=== PATIENT | male | born 1955 | race Caucasian/White ===

== ENCOUNTER 2017-11-10 20:01 | Emergency (ER) | payer MEDICARE ==
[~2017-11-10] VITALS: Ht 185.4 cm; Wt 80.7 kg
[~2017-11-10 20:01] MED LIST: ALBU3IS INH; ALBU90I INH; ALBU90OI INH; ALBU90OI6 INH; BENZ100A PO; BENZ2 PO; BUTASPCAFT; CLON.5; CYCL10; GABA300; GABA800 PO; HYOS.375ER; INDO75CR; LEVO750 PO; Mucinex600 MG PO; Mucus Relief400 MG PO; OXYC40ER; OXYC5 PO; PRED10 PO; PRED20 PO; PROM25; Prednisone10 MG PO; Prednisone20 MG PO; Pulmicort0.5 MG/2 M IH; SERT100; TIOT18 IH; TIOT18 INH; Ventolin Soln3 ML INH; Zithromax250 MG PO
== END 2017-11-10 21:00 | disposition left against medical advice (07) ==
LOC: ER 20:01
DX: Z53.21 Procedure and treatment not carried out due to patient leaving prior to being seen by health care provider (principal)

== ENCOUNTER 2017-11-19 05:40 | Emergency (ER) | payer MEDICARE ==
[~2017-11-19] VITALS: Ht 177.8 cm; Wt 87.9 kg
[2017-11-19] MEDS ORDERED: PRED10 PO (06:04)
[2017-11-19 06:28] LABS: BASOPHILS ABSOLUTE AUTO 0.08 K/mm3 (0.00-0.23); BASOPHILS PERCENT AUTO 1 % (0-2); EOSINOPHILS ABSOLUTE AUTO 0.34 K/mm3 (0.00-0.68); EOSINOPHILS PERCENT AUTO 5 % (0-6); Hematocrit 48.6 % (37.0-53.0); Hemoglobin 15.7 g/dL (13.5-17.5); IMMATURE GRAN ABSOLUTE AUTO 0.05 K/mm3 (0.00-0.10); IMMATURE GRAN PERCENT AUTO 1 % (0-1); LYMPHOCYTES ABSOLUTE AUTO 1.31 K/mm3 (0.84-5.20); LYMPHOCYTES PERCENT AUTO 18 % (21-46); MONOCYTES ABSOLUTE AUTO 0.78 K/mm3 (0.16-1.47); MONOCYTES PERCENT AUTO 11 % (4-13); Mean Corpuscular HGB 31.1 pg (26.0-34.0); Mean Corpuscular HGB Conc 32.3 g/dL (31.5-36.5); Mean Corpuscular Volume 96 fL (80-100); NEUTROPHILS ABSOLUTE AUTO 4.55 K/mm3 (1.96-9.15); NEUTROPHILS PERCENT AUTO 64 % (41-73); Platelet Count 251 K/mm3 (150-400); RDW Coefficient Variation 13.3 % (11.7-14.2); RDW Standard Deviation 47.7 fL (35.1-46.3); Red Blood Cell Count 5.05 M/mm3 (4.30-5.90); White Blood Cell Count 7.11 K/mm3 (4.00-11.30)
[2017-11-19 06:52] LABS: Alanine Aminotransfer (ALT/SGP 21 U/L (12-78); Albumin, Blood 3.8 g/dL (3.4-5.0); Albumin/Globulin Ratio 1.1 (0.8-1.8); Alk Phos 78 U/L (50-136); Anion Gap 6 mmol/L (6-16); Aspartate Aminotrans (AST/SGOT 22 U/L (12-37); Bilirubin, Total 0.6 mg/dL (0.1-1.0); Blood Urea Nitrogen 22 mg/dL (8-24); Bun/Creatinine Ratio 21.2 (12.0-20.0); CO2, Blood 28 mmol/L (21-32); Calcium, Blood 9.1 mg/dL (8.5-10.1); Chloride, Blood 107 mmol/L (98-108); Creatinine, Blood 1.04 mg/dL (0.60-1.20); Globulin, Blood 3.6 g/dL (2.2-4.0); Glomerular Filtration Rate >60 (60-); Glucose, Blood 91 mg/dL (70-99); Potassium, Blood 4.3 mmol/L (3.5-5.5); Sodium, Blood 141 mmol/L (136-145); Total Protein, Blood 7.4 g/dL (6.4-8.2); Troponin I <0.015 ng/mL (0.000-0.040)
[2017-11-19] MEDS ORDERED: Prednisone20 MG PO (08:35)
== END 2017-11-19 08:59 | disposition home or self-care (01) ==
LOC: ER 05:40
PROVIDERS: Emergency Medicine
DX: J44.1 Chronic obstructive pulmonary disease with (acute) exacerbation (principal); F17.200 Nicotine dependence, unspecified, uncomplicated
CPT/HCPCS: 36415; 71046; 80053; 84484; 85025; 93005; 93010; 94644; 96374; 99284; J2930

== ENCOUNTER 2018-01-15 01:46 | Emergency (ER) | payer MEDICARE ==
[~2018-01-15] VITALS: Ht 185.4 cm; Wt 81.7 kg
[2018-01-15 02:03] LABS: BASOPHILS ABSOLUTE AUTO 0.09 K/mm3 (0.00-0.23); BASOPHILS PERCENT AUTO 1 % (0-2); EOSINOPHILS ABSOLUTE AUTO 0.37 K/mm3 (0.00-0.68); EOSINOPHILS PERCENT AUTO 4 % (0-6); Hematocrit 49.6 % (37.0-53.0); Hemoglobin 15.9 g/dL (13.5-17.5); IMMATURE GRAN ABSOLUTE AUTO 0.06 K/mm3 (0.00-0.10); IMMATURE GRAN PERCENT AUTO 1 % (0-1); LYMPHOCYTES ABSOLUTE AUTO 1.85 K/mm3 (0.84-5.20); LYMPHOCYTES PERCENT AUTO 19 % (21-46); MONOCYTES ABSOLUTE AUTO 0.99 K/mm3 (0.16-1.47); MONOCYTES PERCENT AUTO 10 % (4-13); Mean Corpuscular HGB 31.4 pg (26.0-34.0); Mean Corpuscular HGB Conc 32.1 g/dL (31.5-36.5); Mean Corpuscular Volume 98 fL (80-100); NEUTROPHILS ABSOLUTE AUTO 6.21 K/mm3 (1.96-9.15); NEUTROPHILS PERCENT AUTO 65 % (41-73); Platelet Count 286 K/mm3 (150-400); RDW Coefficient Variation 13.4 % (11.7-14.2); RDW Standard Deviation 48.9 fL (35.1-46.3); Red Blood Cell Count 5.06 M/mm3 (4.30-5.90); White Blood Cell Count 9.57 K/mm3 (4.00-11.30)
[2018-01-15 02:04] LABS: PCO2 Arterial 64.5 mmHg (35-45); PO2 Arterial 81.6 mmHg (80-100); pH Blood Arterial 7.27 (7.35-7.45)
[2018-01-15 02:24] LABS: Alanine Aminotransfer (ALT/SGP 27 U/L (12-78); Albumin, Blood 3.8 g/dL (3.4-5.0); Albumin/Globulin Ratio 1.1 (0.8-1.8); Alk Phos 83 U/L (50-136); Anion Gap 7 mmol/L (6-16); Aspartate Aminotrans (AST/SGOT 30 U/L (12-37); Bilirubin, Total 0.4 mg/dL (0.1-1.0); Blood Urea Nitrogen 20 mg/dL (8-24); Bun/Creatinine Ratio 17.2 (12.0-20.0); CO2, Blood 31 mmol/L (21-32); Calcium, Blood 8.8 mg/dL (8.5-10.1); Chloride, Blood 106 mmol/L (98-108); Creatinine, Blood 1.16 mg/dL (0.60-1.20); Globulin, Blood 3.5 g/dL (2.2-4.0); Glomerular Filtration Rate >60 (60-); Glucose, Blood 100 mg/dL (70-99); Potassium, Blood 4.4 mmol/L (3.5-5.5); Sodium, Blood 144 mmol/L (136-145); Total Protein, Blood 7.3 g/dL (6.4-8.2); Troponin I <0.015 ng/mL (0.000-0.040)
[2018-01-15] MEDS ORDERED: Prednisone50 MG PO (03:11)
[2018-01-15] MEDS ORDERED: LEVO750 PO (03:11)
== END 2018-01-15 03:15 | disposition left against medical advice (07) ==
LOC: ER 01:46
PROVIDERS: Emergency Medicine
DX: J44.1 Chronic obstructive pulmonary disease with (acute) exacerbation (principal); J96.90 Respiratory failure, unspecified, unspecified whether with hypoxia or hypercapnia; F17.210 Nicotine dependence, cigarettes, uncomplicated; Z88.8 Allergy status to other drugs, medicaments and biological substances; Z88.5 Allergy status to narcotic agent; Z88.1 Allergy status to other antibiotic agents; Z79.52 Long term (current) use of systemic steroids; Z79.51 Long term (current) use of inhaled steroids
CPT/HCPCS: 36600; 71045; 80053; 82803; 83880; 84484; 85025; 94644; 94660; 96365; 96375; 99284; J1100; J1956

== ENCOUNTER 2018-06-09 10:34 | Emergency (ER) | payer MEDICARE ==
[~2018-06-09] VITALS: Ht 188 cm; Wt 76.2 kg
[~2018-06-09 10:34] MED LIST changes: +Prednisone50 MG PO
== END 2018-06-09 10:52 | disposition left against medical advice (07) ==
LOC: ER 10:34
DX: Z53.21 Procedure and treatment not carried out due to patient leaving prior to being seen by health care provider (principal)

== ENCOUNTER 2018-11-02 20:39 | Inpatient (IN) | payer MEDICARE ==
[~2018-11-02] VITALS: Ht 177.8 cm; Wt 64.4 kg
[2018-11-02 21:13] LABS: BASOPHILS ABSOLUTE AUTO 0.06 K/mm3 (0.00-0.23); BASOPHILS PERCENT AUTO 1 % (0-2); EOSINOPHILS ABSOLUTE AUTO 0.12 K/mm3 (0.00-0.68); EOSINOPHILS PERCENT AUTO 1 % (0-6); Hematocrit 49.2 % (37.0-53.0); IMMATURE GRAN PERCENT AUTO 5 % (0-1); LYMPHOCYTES ABSOLUTE AUTO 0.96 K/mm3 (0.84-5.20); LYMPHOCYTES PERCENT AUTO 11 % (21-46); MONOCYTES ABSOLUTE AUTO 0.92 K/mm3 (0.16-1.47); MONOCYTES PERCENT AUTO 10 % (4-13); Mean Corpuscular HGB 31.6 pg (26.0-34.0); Mean Corpuscular HGB Conc 30.5 g/dL (31.5-36.5); Mean Corpuscular Volume 104 fL (80-100); Mean Platelet Volume 10.4 fL (9.1-12.4); NEUTROPHILS ABSOLUTE AUTO 6.41 K/mm3 (1.96-9.15); NEUTROPHILS PERCENT AUTO 72 % (41-73); Platelet Count 196 K/mm3 (150-400); RDW Coefficient Variation 13.7 % (11.7-14.2); RDW Standard Deviation 53.5 fL (35.1-46.3); Red Blood Cell Count 4.74 M/mm3 (4.30-5.90); White Blood Cell Count 8.87 K/mm3 (4.00-11.30)
[2018-11-02 21:23] LABS: Albumin, Blood 3.3 g/dL (3.4-5.0); Bilirubin, Total 0.7 mg/dL (0.1-1.0); Calcium, Blood 7.8 mg/dL (8.5-10.1); Creatinine, Blood 1.6 mg/dL (0.60-1.20); Globulin, Blood 3.2 g/dL (2.2-4.0); Potassium, Blood 5.4 mmol/L (3.5-5.5); Total Protein, Blood 6.5 g/dL (6.4-8.2); Troponin I 0.33 ng/mL (0.000-0.040)
[2018-11-02 22:45] LABS: Calcium, Ionized (POC) 1.05 mmol/L (1.10-1.46); Chloride (POC) 103 mmol/L (98-108); Creatinine (POC) 1.8 mg/dL (0.8-1.3); Glucose (ISTAT POC) 205 mg/dL (70-99); Potassium (POC) 5.3 mmol/L (3.5-5.5); Sodium (POC) 135 mmol/L (135-148); Total CO2 (POC) 21 mmol/L (21-32)
[2018-11-02 22:57] LABS: PCO2 Arterial 95.5 mmHg (35-45); PO2 Arterial 488 mmHg (80-100); pH Blood Arterial 6.89 (7.35-7.45)
[2018-11-02 23:08] LABS: BASOPHILS ABSOLUTE AUTO 0.11 K/mm3 (0.00-0.23); BASOPHILS PERCENT AUTO 1 % (0-2); EOSINOPHILS ABSOLUTE AUTO 0.09 K/mm3 (0.00-0.68); EOSINOPHILS PERCENT AUTO 1 % (0-6); Hematocrit 45.1 % (37.0-53.0); Hemoglobin 13.7 g/dL (13.5-17.5); IMMATURE GRAN ABSOLUTE AUTO 0.66 K/mm3 (0.00-0.10); IMMATURE GRAN PERCENT AUTO 5 % (0-1); LYMPHOCYTES ABSOLUTE AUTO 1.39 K/mm3 (0.84-5.20); LYMPHOCYTES PERCENT AUTO 10 % (21-46); MONOCYTES ABSOLUTE AUTO 0.41 K/mm3 (0.16-1.47); MONOCYTES PERCENT AUTO 3 % (4-13); Mean Corpuscular HGB 31.9 pg (26.0-34.0); Mean Corpuscular HGB Conc 30.4 g/dL (31.5-36.5); Mean Corpuscular Volume 105 fL (80-100); Mean Platelet Volume 10.6 fL (9.1-12.4); NEUTROPHILS ABSOLUTE AUTO 10.96 K/mm3 (1.96-9.15); NEUTROPHILS PERCENT AUTO 81 % (41-73); NRBC ABSOLUTE 0.02 K/mm3 (0.00-0.02); NRBC Auto 0.1 /100 WBC (0.0-0.2); Platelet Count 189 K/mm3 (150-400); RDW Coefficient Variation 13.9 % (11.7-14.2); RDW Standard Deviation 54.2 fL (35.1-46.3); Red Blood Cell Count 4.29 M/mm3 (4.30-5.90); White Blood Cell Count 13.62 K/mm3 (4.00-11.30)
[2018-11-02 23:26] LABS: Albumin, Blood 2.7 g/dL (3.4-5.0); Bilirubin, Total 0.8 mg/dL (0.1-1.0); Calcium, Blood 7.6 mg/dL (8.5-10.1); Creatinine, Blood 1.5 mg/dL (0.60-1.20); Globulin, Blood 2.7 g/dL (2.2-4.0); Potassium, Blood 5.2 mmol/L (3.5-5.5); Total Protein, Blood 5.4 g/dL (6.4-8.2)
[2018-11-02 23:39] LABS: PCO2 Arterial 103 mmHg (35-45); pH Blood Arterial 6.94 (7.35-7.45)
--- NOTE | 2018-11-02 23:40 | NUR ---
Stat Echocardiogram performed in [facility].
--- NOTE | 2018-11-03 00:10 | NUR ---
ADMIT RECEIVED ADMIT FROM SENIOR SALES DIRECTOR S/P PCI WITH IABP. PT IS INTUBATED- AC 20, TV 500, PEEP 5, FIO2 60%. RESP RATE 20. IABP TO RIGHT FEMORAL- ECG TRIGGER WITH ASSIST FREQUENCY 1:1 (SEE BALLOON PUMP FLOWSHEET). MONITOR SHOWS NSR, RATE 90s. EPINEPHRINE GTT INFUSING @ 10MCG/MIN. LEVOPHED @ 3MCG/MIN. VASOPRESSIN INFUSING @ 0.04UNITS/MIN. AMIODARONE STARTED @ 0.04UNITS/MIN. TEMP 92.6F PER JONES TEMP PROBE. UNRESPONSIVE TO NOXIOUS STIMULI. NO GAG REFLEX NOTED. NO COUGH. PUPILS 7MM AND NON-REACTIVE. OCCASIONAL YAWN-LIKE REFLEX NOTED. OG CLAMPED AT THIS TIME. JONES PATENT AND DRAINING CLOUDY YELLOW URINE. POOR CAP REFILL NOTED. SKIN COOL AND DRY. 1+ PEDAL PULSES NOTED BILATERALLY. CENTRAL LINE NOTED TO LEFT FEMORAL. SEE ADMIT ASSESSMENT FOR FULL ASSESSMENT.
--- NOTE | 2018-11-03 00:26 | NUR ---
PT ARRIVED TO ICU FROM AUTOMOTIVE TIRE TECHNICIAN, PLACED ON 840 VENTILATOR. SETTINGS INCREASED TO 500 ML, EQUAL TO JUST UNDER 7 ML/KG OF IBW.
--- NOTE | 2018-11-03 00:37 | NUR ---
TRANSVENOUS PACER MONITOR SHOWS NSR, RATE 90s. TRANSVENOUS PACING IS NOTED DESPITE PACER RATE SET @ 70. DR. FELDMAN AT BEDSIDE. NEW ORDER RECEIVED TO TURN PACER OFF AT THIS TIME.
[2018-11-03 01:14] LABS: Base Excess Venous -13.6 mmol/L; Bicarbonate Venous 13.3 mmol/L (24.0-30.0); PO2 Venous 89.5 mmHg (38-42); pH Blood Venous 6.98 (7.34-7.37)
[2018-11-03 02:27] LABS: BASOPHILS ABSOLUTE AUTO 0.09 K/mm3 (0.00-0.23); BASOPHILS PERCENT AUTO 1 % (0-2); EOSINOPHILS ABSOLUTE AUTO 0.07 K/mm3 (0.00-0.68); EOSINOPHILS PERCENT AUTO 0 % (0-6); Hematocrit 45.1 % (37.0-53.0); Hemoglobin 13.7 g/dL (13.5-17.5); IMMATURE GRAN ABSOLUTE AUTO 0.52 K/mm3 (0.00-0.10); IMMATURE GRAN PERCENT AUTO 3 % (0-1); LYMPHOCYTES ABSOLUTE AUTO 0.83 K/mm3 (0.84-5.20); LYMPHOCYTES PERCENT AUTO 4 % (21-46); MONOCYTES ABSOLUTE AUTO 0.91 K/mm3 (0.16-1.47); MONOCYTES PERCENT AUTO 5 % (4-13); Mean Corpuscular HGB 31.4 pg (26.0-34.0); Mean Corpuscular HGB Conc 30.4 g/dL (31.5-36.5); Mean Corpuscular Volume 103 fL (80-100); Mean Platelet Volume 11.3 fL (9.1-12.4); NEUTROPHILS ABSOLUTE AUTO 17.45 K/mm3 (1.96-9.15); NEUTROPHILS PERCENT AUTO 88 % (41-73); Platelet Count 218 K/mm3 (150-400); RDW Coefficient Variation 13.8 % (11.7-14.2); RDW Standard Deviation 53.1 fL (35.1-46.3); Red Blood Cell Count 4.36 M/mm3 (4.30-5.90); White Blood Cell Count 19.87 K/mm3 (4.00-11.30)
[2018-11-03 02:31] LABS: Albumin, Blood 2.9 g/dL (3.4-5.0); Bilirubin, Total 0.8 mg/dL (0.1-1.0); Bun/Creatinine Ratio 13.1 (12.0-20.0); Calcium, Blood 7.7 mg/dL (8.5-10.1); Creatinine, Blood 1.98 mg/dL (0.60-1.20); Globulin, Blood 2.8 g/dL (2.2-4.0); Potassium, Blood 4.7 mmol/L (3.5-5.5); Total Protein, Blood 5.7 g/dL (6.4-8.2)
[2018-11-03 02:45] LABS: Phosphorus, Blood 9.8 mg/dL (2.5-4.9)
[2018-11-03 02:54] LABS: Magnesium, Blood 3.2 mg/dL (1.6-2.4)
[2018-11-03 02:54] LABS: pH Blood Venous 6.96 (7.34-7.37)
[2018-11-03 02:55] LABS: Base Excess Venous -14.1 mmol/L; Bicarbonate Venous 12.9 mmol/L (24.0-30.0); PCO2 Venous 80.1 mmHg (38-42); PO2 Venous 78.8 mmHg (38-42)
[2018-11-03 04:07] LABS: Source, Urine Catheter
[2018-11-03 04:13] LABS: Bilirubin, Urine Neg (Neg); Blood, Urine 5+ (Neg); Glucose Qualitative, Urine 3+ (Neg); Ketones, Urine Neg (Neg); Leukocyte Esterase, Urine Neg (Neg); Nitrite, Urine Neg (Neg); Protein, Urine 3+ (Neg); Urobilinogen, Urine NORM (Normal)
[2018-11-03 04:15] LABS: Appearance, Urine Hazy (Clear); Color, Urine Pale Yellow (P-Yellow)
[2018-11-03 04:19] LABS: Amorphous Mod ({null, 0-Heavy}); Bacteria Few /hpf; Mucus Light ({null, 0-Heavy}); Red Blood Cells, Urine 25-50 /hpf (0-2); Spermatozoa Mod /hpf; Squamous Epithelial Cells Rare /hpf (Few); White Blood Cells, Urine Rare /hpf (0-5)
[2018-11-03 04:23] LABS: U Amphetamine Screen Not Detected; U Barbituate Screen Not Detected; U Benzodiazapine Screen Not Detected; U Buprenorphine Screen Not Detected; U Cannabinoids Screen Not Detected; U Cocaine Screen Not Detected; U Methadone Screen Not Detected; U Methamphetamine Screen Not Detected; U Opiates Screen Not Detected; U Oxycodone Screen Not Detected; U Phencyclidine Screen Not Detected; U Propoxyphene Screen Not Detected
--- NOTE | 2018-11-03 06:50 | NUR ---
SHIFT SUMMARY NO ACUTE CHANGES. REMAINS INTUBATED- AC 22, TV 470, PEEP 5, FIO2 50%. RESP RATE MOSTLY 22 WITH INFREQUENT SPONTANEOUS BREATH. IABP CONTINUES IN 1:1 MODE WITH AUGMENTED PRESSURE >100 AND MAP >65. RIGHT FEMORAL SITE CLEAR. EPINEPHRINE CONTINUES @ 10MCG/MIN. LEVOPHED INFUSING @ 4MCG/MIN. AMIODARONE INFUSING @ 1MG/MIN. D5 WITH 150mEq SODIUM BICARB INFUSING @ 75CC/HR. NS INFUSING @ 75CC/HR. VASOPRESSIN REMAINS OFF. PT CONTINUES TO BE COMPLETELY UNRESPONSIVE. TEMP 93.4F. JONES PATENT AND DRAINING TO GRAVITY. OG TO LIS. NO SEDATION DURING NOC. CBG >400- DR. SAXENA NOTIFIED AND INSULIN GTT ORDERED- WAITING FOR IT TO BECOME AVAILABLE FROM PHARMACY. WILL REPORT TO DAY SHIFT RN.
[2018-11-03 08:07] LABS: Base Excess Venous -12.9 mmol/L; Bicarbonate Venous 13.9 mmol/L (24.0-30.0); PCO2 Venous 68.5 mmHg (38-42); PO2 Venous 65.5 mmHg (38-42)
[2018-11-03 08:09] LABS: pH Blood Venous 7.03 (7.34-7.37)
[2018-11-03 08:31] LABS: BASOPHILS ABSOLUTE AUTO 0.07 K/mm3 (0.00-0.23); BASOPHILS PERCENT AUTO 0 % (0-2); EOSINOPHILS PERCENT AUTO 0 % (0-6); Hematocrit 42.6 % (37.0-53.0); IMMATURE GRAN ABSOLUTE AUTO 0.18 K/mm3 (0.00-0.10); IMMATURE GRAN PERCENT AUTO 1 % (0-1); LYMPHOCYTES ABSOLUTE AUTO 0.34 K/mm3 (0.84-5.20); LYMPHOCYTES PERCENT AUTO 2 % (21-46); MONOCYTES ABSOLUTE AUTO 0.78 K/mm3 (0.16-1.47); MONOCYTES PERCENT AUTO 4 % (4-13); Mean Corpuscular HGB 31.9 pg (26.0-34.0); Mean Corpuscular HGB Conc 30.5 g/dL (31.5-36.5); Mean Corpuscular Volume 104 fL (80-100); Mean Platelet Volume 10.6 fL (9.1-12.4); NEUTROPHILS ABSOLUTE AUTO 20.38 K/mm3 (1.96-9.15); NEUTROPHILS PERCENT AUTO 94 % (41-73); Platelet Count 190 K/mm3 (150-400); RDW Coefficient Variation 13.4 % (11.7-14.2); Red Blood Cell Count 4.08 M/mm3 (4.30-5.90); White Blood Cell Count 21.75 K/mm3 (4.00-11.30)
[2018-11-03 08:54] LABS: Albumin, Blood 2.6 g/dL (3.4-5.0); Bun/Creatinine Ratio 12.6 (12.0-20.0); Calcium, Blood 6.8 mg/dL (8.5-10.1); Creatinine, Blood 2.39 mg/dL (0.60-1.20); Globulin, Blood 2.7 g/dL (2.2-4.0); Magnesium, Blood 2.7 mg/dL (1.6-2.4); Total Protein, Blood 5.3 g/dL (6.4-8.2)
[2018-11-03 08:58] LABS: Phosphorus, Blood 8.3 mg/dL (2.5-4.9)
--- NOTE | 2018-11-03 09:00 | NUR ---
STARTED FINAL DISCHARGE AT THIS TIME.
--- NOTE | 2018-11-03 09:27 | NUR ---
DR FELDMAN IN TO ASSESS PT. UPDATED HER ON PT'S STATUS.
[2018-11-03 09:28] LABS: Glucose, Blood 563 mg/dL (70-99)
--- NOTE | 2018-11-03 09:43 | NUR ---
ETHICS CONSULT STARTED: ALYSA IVERSON, DR FELDMAN, DOMINGA CHA CN, AND THIS RN PRESENT DURING ETHICS CONSULT. PT HAS NO KNOWN NEXT OF KIN/FAMILY. GOOD FRIEND IRWIN REPORTS THAT HE WOULD NOT WANT THESE EXTREME MEASURES, SHE KNOWS HE HAS A POLST/AD, BUT CANNOT FIND HIS MEDICAL BINDER IN HIS [place] HE LIVES [place]. MEDICAL RECORDS REPORT THAT HE IS A BUT THEY WERE UNABLE TO FIND ANY RECORDS AT THE [place] WHEN THIS RN CALLED TO ATTEMPT TO GET AD/POLST.
--- NOTE | 2018-11-03 09:56 | NUR ---
CALLED [facility] TO CHECK IF POLST ON RECORD. PT DOES NOT HAVE A POLST REGISTERED PER REGISTRY BANK.
[2018-11-03 10:09] LABS: Creatine Kinase MB 124.4 ng/mL (0.0-3.6)
[2018-11-03 10:20] LABS: Creatine Kinase MB Index 2.4 (0.0-4.0); Troponin I 11.4 ng/mL (0.000-0.040)
--- NOTE | 2018-11-03 10:21 | NUR ---
Ethics consult order processed. Patient case details reviewed and discussed with Career Development Manager (Dr Gómez), Intensive Care Unit Physician (Dr Sheikh), and Nursing Staff. 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 Per the principals physical exam it is also suspected that Mr Garza unfortunately but likely suffered a serious anoxic brain injury. Two provider attestation confirms that his clinical prognosis is extremly bleak with no meaningful recovery expected. Though Mr Garza has no advance care planning instrument on file outlining his medical preferences, an analysis of his HMP from prior admissions indicates that a non-agressive approach in the event of decline was his wish, and his friend Aramis verifies in concert with these findings that Alec was not in favor of heroic measures or preservation by artifical means. Given the composite picture, to honor the principals dignity, and avoid the non-beneficial use of clinical resources; in accordance with ORS 127.635, life sustaining procedures will be withdrawn under the supervision of the attending physician. Thank you for this consult, Hamlet Zamora DMin
[2018-11-03 10:31] LABS: Glucose, Blood 559 mg/dL (70-99)
[2018-11-03 11:46] LABS: Glucose, Blood 534 mg/dL (70-99)
--- NOTE | 2018-11-03 11:51 | NUR ---
ASSUMED CARE / UPDATE: REPORT RECEIVED FROM DARLENE Ureña, RN & ARGENTINA Reeves, RN. ASSUMED CARE OF THIS PT AT APPROX 0700. PT REMAINS UNCHANGED AT THIS TIME; HE IS UNRESPONSIVE TO ALL STIMULI, PUPILS ARE DILATED & NONREACTIVE, EYES ARE FIXED. IABP TO R GROIN & CL TO L GROIN DOCUMENTED. LEVOPHED & EPINEPHRINE CONTINUE CHARTED IN FLOWSHEET. AMIODARONE OKAY TO CONTINUE AT 1 MG/MIN PER DR. FELDMAN. INSULIN GTT INITIATED THIS AM FOR CONTINUED HIGH GLUCOSE LEVELS, TITRATION DOC IN FLOWSHEET. SODIUM BIBARB CONTINUES W/ LITTLE IMPROVEMENT TO VBG. PROVIDER AWARE. ETHICS CONSULT COMPLETED NOTED PRIOR. PT's FRIEND, ALEX VIDAL, IN ROOM, AWAITING DISCUSSION W/ DR. FELDMAN ABOUT PT's PROGNOSIS. SHE VERBALIZES THAT THE PT WOULD NOT HAVE WANTED THESE INTERVENTIONS & THAT HE IS A DNR. SHE HAS BEEN UNABLE TO FIND ANY PAPERWORK AT HIS HOME DETAILING THIS. WILL COTINUE TO MONITOR & UPDATE NEEDED.
[2018-11-03 12:32] LABS: Base Excess Venous -14.1 mmol/L; Bicarbonate Venous 13.5 mmol/L (24.0-30.0); PCO2 Venous 63.2 mmHg (38-42); pH Blood Venous 7.03 (7.34-7.37)
[2018-11-03 12:55] LABS: Glucose, Blood 527 mg/dL (70-99)
--- NOTE | 2018-11-03 14:23 | NUR ---
END OF LIFE: ALL IV PUMPS PLACED ON STANDBY & PT PREMEDICATED PER EMAR. EXTUBATION TIME 1418, IABP OFF AT 1421. FRIENDS AT BEDSIDE & PALLIATIVE/SPIRITUAL CARE IN ROOM FOR SUPPORT.
--- NOTE | 2018-11-03 15:03 | NUR ---
I was requested by Palliative Care Nurse Amna, to visit with family and assist with family support while withdrawal of ventilation of patient took place. I was introduced to patient's friends (that are his only "family"), and was able to establish therapeutic alliance. I conducted a life review of patient and encouraged story telling. I did exploration of patients and friends belief systems. I affirmed their love and care for the patient. We spent quite some time laughing and crying as stories unfolded. After Palma, patient's friend, gave the final request to withdraw support, I asked for permission to pray. I prayed for the patient and for the friends present in the room. I then provided a calming presence, while continuing to help pull up the memories of the patient after the withdrawal of support took place until time of was declared. I then reaffirmed their decision to carry out patient's wishes, their willingness to be by his side to the end and then hugged the patient's friends present in the room. They said that I have found my calling and that I was of comfort to them.
--- NOTE | 2018-11-03 16:03 | NUR ---
FINAL DISCHARGE: FINAL DISCHARGE NOW COMPLETE, CHARTED IN FINAL D/C INTERVENTION. PT AT 1437. DR. FELDMAN, DR. SAXENA & DR. SAMUELS NOTIFIED OF THIS. PT's FRIEND ALEX, & HER FAMILY AT BEDSIDE DURING PT's PASSING. ALEX HAS TAKEN ALL BELONGINGS THAT PT CAME TO HOSPITAL WITH, INCLUDING HIS WALLET, WATCH, DENTURES, CLOTHES, BELT & BOOTS. POST-MORTEM CARE HAS BEEN COMPLETED & HOME HAS BEEN CONTACTED BY [facility].
== END 2018-11-03 14:37 | DRG 270 ==
LOC: ER 20:39 → ICUW 20:53 → EDBD 20:53 → ICUW 21:30
PROVIDERS: Emergency Medicine; Family Medicine; Internal Medicine Pulmonary Disease; ADMIT Internal Medicine Cardiovascular Disease
PROC: 5A02210 Assistance with Cardiac Output using Balloon Pump, Continuous (ICD-10-PCS; principal; 2018-11-02)
PROC: 02703ZZ Dilation of Coronary Artery, One Artery, Percutaneous Approach (ICD-10-PCS; 2018-11-02)
PROC: 02C03ZZ Extirpation of Matter from Coronary Artery, One Artery, Percutaneous Approach (ICD-10-PCS; 2018-11-02)
PROC: B2111ZZ Fluoroscopy of Multiple Coronary Arteries using Low Osmolar Contrast (ICD-10-PCS; 2018-11-02)
PROC: 06HY33Z Insertion of Infusion Device into Lower Vein, Percutaneous Approach (ICD-10-PCS; 2018-11-02)
PROC: 5A2204Z Restoration of Cardiac Rhythm, Single (ICD-10-PCS; 2018-11-02)
PROC: 5A12012 Performance of Cardiac Output, Single, Manual (ICD-10-PCS; 2018-11-02)
PROC: 0BH17EZ Insertion of Endotracheal Airway into Trachea, Via Natural or Artificial Opening (ICD-10-PCS; 2018-11-02)
PROC: 5A1935Z Respiratory Ventilation, Less than 24 Consecutive Hours (ICD-10-PCS; 2018-11-02)
PROC: 3E033XZ Introduction of Vasopressor into Peripheral Vein, Percutaneous Approach (ICD-10-PCS; 2018-11-02)
PROC: 3E043XZ Introduction of Vasopressor into Central Vein, Percutaneous Approach (ICD-10-PCS; 2018-11-03)
PROC: 5A2204Z Restoration of Cardiac Rhythm, Single (ICD-10-PCS; 2018-11-03)
DX: I21.11 ST elevation (STEMI) myocardial infarction involving right coronary artery (principal); J96.02 Acute respiratory failure with hypercapnia; J96.01 Acute respiratory failure with hypoxia; R40.20 Unspecified coma; I25.42 Coronary artery dissection; I44.2 Atrioventricular block, complete; G93.1 Anoxic brain damage, not elsewhere classified; I47.2 Ventricular tachycardia; N17.9 Acute kidney failure, unspecified; J44.1 Chronic obstructive pulmonary disease with (acute) exacerbation; E87.2 Acidosis; I31.3 Pericardial effusion (noninflammatory); E87.1 Hypo-osmolality and hyponatremia; I97.51 Accidental puncture and laceration of a circulatory system organ or structure during a circulatory system procedure; Z51.5 Encounter for palliative care; R57.0 Cardiogenic shock; I49.01 Ventricular fibrillation; I50.9 Heart failure, unspecified; K75.89 Other specified inflammatory liver diseases; I25.119 Atherosclerotic heart disease of native coronary artery with unspecified angina pectoris; F17.200 Nicotine dependence, unspecified, uncomplicated; D72.829 Elevated white blood cell count, unspecified; R73.9 Hyperglycemia, unspecified; Z66 Do not resuscitate
CPT/HCPCS: 31500; 31720; 33967; 36415; 36556; 51702; 71045; 80047; 80053; 81001; 82330; 82550; 82553; 82803; 82947; 83605; 83735; 84100; 84484; 85014; 85025; 85347; 87040; 92941; 92950; 93005; 93010; 93308; 93454; 94002; 94003; 94640; 96365; 96375; 99291-25; C1725; C1751; C1757; C1769; C1887; C9113; J0171; J0282; J0461; J1265; J1644; J1815; J1940; J2250; J2270; J2543; J2720; J2920; J2930; J3010; J3246; J3370; J7030; J7040; J7050; J7060; J7070; Q9967